=== PATIENT | male | born 2005 | race Hispanic/Latino ===

== ENCOUNTER 2025-01-08 11:11 | Emergency (ER) | payer MEDICAID, SELFPAY | END 2025-01-08 14:04 | disposition home or self-care (01) | LOC: CSHERS 11:11 | DX: S02.40DA Maxillary fracture, left side, initial encounter for closed fracture (principal); W22.8XXA Striking against or struck by other objects, initial encounter; Y93.89 Activity, other specified | CPT/HCPCS: 70450; 70486 ==